=== PATIENT | female | born 1960 | race Caucasian/White ===

== ENCOUNTER 2022-03-30 06:56 | Day surgery (SDC) | payer OTHER, SELFPAY ==
[2022-03-23 11:05] VITALS: BMI 29.0
[2022-03-30 07:12] VITALS: BMI 25.9
[2022-03-30 07:27] VITALS: BP 134/79; PULSE 71; RESP 16; TEMP 36.9; O2SAT 99
[2022-03-30] MEDS: Lactated Ringers 1,000 ML 100 ML IVCONT (07:31)
--- NOTE | 2022-03-30 07:49 | HO.ANESPROP2 ---
HPI - Anesthesia Eval Consult details Narrative: 61yo female patient for colonoscopy PMF Active Problems Active Problems: No MARIELA Past Medical History Medical History (Updated 03/23/22 @ 11:03 by Heather Leo RN) Asthma IBS (irritable bowel syndrome) Family History Family history of problems with anesthesia: No Surgical History Surgical History (Updated 03/23/22 @ 11:03 by Heather Leo RN) H/O colonoscopy Hx of knee surgery History of Problems with Anesthesia: No Social History Social History (Updated 03/23/22 @ 11:05 by Heather Leo RN) Household Members: Spouse Patient Tobacco Use Status: Never used Tobacco Use of substances other than those prescribed or required for medical reasons: No Are you DNR?: No Advance Directives: No Advance Directives Information Provided: Yes Recently lost weight without trying: No How much weight loss: 2-13 pounds Nutrition Risks: No Nutritional Risk Meds Allergies Allergy/AdvReac Type Severity Reaction Status Date / Time amoxicillin Allergy Severe hives Verified 03/30/22 07:09 Active Medications: Current Medications Sodium Biphosphate/Sodium Phosphate (Sodium Phosphate,[place]-Dibasic 133 Ml Enema) 133 ml NV ONCE PRN PRN Reason: Poor Colonoscopy Prep Results Home Medications Medication Instructions Recorded Confirmed Last Taken Type albuterol 90 mcg/actuation aerosol 90 mcg INHALATION NEEDED 03/30/22 03/30/22 Unknown History inhaler fluticasone propionate 110 2 puff INHALATION NEEDED 03/30/22 03/30/22 Unknown History mcg/actuation HFA aerosol inhaler Exam Exam Date and Time: March 30, 2022 0749 Height,Weight and Vital Signs: Height 5 ft 4 in Weight 68.606 kg Last Vital Signs Temp 98.4 F 03/30/22 07:27 Pulse 71 03/30/22 07:27 Resp 16 03/30/22 07:27 BP 134/79 03/30/22 07:27 Pulse Ox 99 03/30/22 07:27 Airway Mallampati Class: II TM Dist: >3cm Neck ROM: Full Loose/Missing/Broken Teeth: Yes (Caps intact. Wears mouth guard. Grinds teeth) Heart: RRR Lungs: CTAB Assessment and Plan Assessment Anesthesia Assessment: Anesthesia Plan Discussed and Chart Reviewed Final Anesthetic Review Family History of Problems with Anesthesia: No History of Problems with Anesthesia: No NPO: Yes ASA Class: II Final Preanesthetic Review: No Changes in Pt Med Stat, Meds/Allgs Chart Reviewed, Consent Obtained/Reviewed and Anes Risks/Benef Reviewed Patient Risk: Low Procedure Risk: Low Assessment/Block/Sedation in SS: Assess/Block/Sedation-SS Anesthetic Plan Anesthetic Plan: MAC: Disposition: Standard PACU
--- NOTE | 2022-03-30 09:20 | PM.OP ---
Brief Operative Note Date of Service: 03/30/22 Pre-op diagnosis: Screening Post-op diagnosis: other (Polyp) Procedure: Colonoscopy to the cecum and TI with bx/removal of polyp Surgeon: Jordan Bean Anesthesia: MAC Was an Machine Or Machinery Mechanic used for this Procedure?: No Estimated blood loss (mL): 2.0 Pathology: other (A. Ascending colon polyp) Condition: stable Disposition: PACU
[2022-03-30 09:21] VITALS: BP 92/63; PULSE 67; RESP 16; TEMP 36.1; O2SAT 99
[2022-03-30 09:36] VITALS: BP 117/71; PULSE 62; RESP 16; TEMP 36.1; O2SAT 99
--- NOTE | 2022-03-30 16:27 | OP_ITS ---
SURGEON: Jordan Bean MD INDICATIONS: The patient presents for evaluation of colorectal cancer screening and family history of colon cancer. Full consent was obtained from her for this, including risks of bleeding and perforation. PREOPERATIVE DIAGNOSIS: POSTOPERATIVE DIAGNOSIS: PROCEDURE PERFORMED: Colonoscopy to cecum and terminal ileum with biopsy and removal of polyp. ESTIMATED BLOOD LOSS: COMPLICATIONS: ANESTHESIA: Monitored anesthesia care. ASSISTANTS: SPECIMENS: PREOPERATIVE DIAGNOSES: Colorectal cancer screening and family history of colon cancer. POSTOPERATIVE DIAGNOSES: Colorectal cancer screening and family history of colon cancer, small colon polyp, diverticulosis and internal hemorrhoids. DESCRIPTION OF PROCEDURE: The patient was placed in the left lateral decubitus position. The digital rectal exam revealed no abnormalities. The Olympus video pediatric colonoscope was entered into the rectum and advanced easily to the cecum. Once in the cecum, I did identify normal-appearing cecal pouch with appendiceal orifice and a normal-appearing ileocecal valve. The terminal ileum was cannulated and appeared normal. The scope was withdrawn back in the colon. The entire cecum and ileocecal valve appeared normal. The scope was slowly withdrawn assessing all mucosal surfaces carefully. Preparation was excellent. In the proximal ascending colon was an approximately 4 mm polyp was biopsied and completely removed with cold biopsy forceps. I did not visualize any other polyps, colitis, nor angiodysplasia. There was a mild amount of sigmoid diverticulosis. In the rectum, scope was retroflexed visualizing internal hemorrhoids, but no other pathology. The rectal mucosa appeared normal. The scope was straightened and withdrawn from the patient. She tolerated the procedure well and was returned to recovery area in stable condition. IMPRESSION: 1. Small colon polyp, status post biopsy removal. 2. Mild diverticulosis. 3. Internal hemorrhoids. PLAN: The results of the biopsy will be checked. Even if this is only hyperplastic, I would recommend a followup colonoscopy in 5 years for further screening given her family history of colon cancer. She will otherwise see me on a p.r.n. basis. MD BRANNON Morin/JORDY / [id number]
== END 2022-03-30 09:55 | disposition home or self-care (01) ==
PROVIDERS: PCP Internal Medicine; Visit Provider Internal Medicine
PROC: 0DJD8ZZ Inspection of Lower Intestinal Tract, Via Natural or Artificial Opening Endoscopic (ICD-10-PCS; CPT 45378; principal; 2022-03-30 08:20)
DX: Z12.11 Encounter for screening for malignant neoplasm of colon (principal); Z80.0 Family history of malignant neoplasm of digestive organs; D12.2 Benign neoplasm of ascending colon; K57.30 Diverticulosis of large intestine without perforation or abscess without bleeding; K64.8 Other hemorrhoids; K58.1 Irritable bowel syndrome with constipation; J45.909 Unspecified asthma, uncomplicated; Z79.51 Long term (current) use of inhaled steroids
CPT/HCPCS: 45380; 88305